=== PATIENT | female | born 1935 | race Caucasian/White ===

== ENCOUNTER 2016-06-11 12:51 | Inpatient (IN) | payer OTHER ==
[2016-06-11] VITALS (9 sets, daily range): BP systolic 89–111; BP diastolic 51–84; PULSE 71–93; TEMP 36.6–36.7; O2SAT 96–99; Ht 152.4 cm; Wt 44.0 kg
[~2016-06-11] VITALS: Ht 152.4 cm; Wt 44.0 kg
[~2016-06-11 12:51] MED LIST: ACET-1256 PO; ADVIN25050 INH; ALBUAER2 INH; CALCTAB7 PO; DICY10CA12 PO; DOCU100C PO; ESCI1TAB9 PO; ESTR1CRE; LEVO50TA PO; MULT-614 PO; PRD10 PO; RANI300T PO; ZOLE5INJ IV
[2016-06-11] MEDS ORDERED: ASPIRIN 81 MG CHEW PO STA (13:14)
[2016-06-11] MEDS ORDERED: ALBUT/IPRATROP 3MG/0.5MG NEB 3 ML VIAL INH STA (13:29)
[2016-06-11] MEDS ORDERED: SODIUM CHLORIDE 0.9% 500ML 500 ML IV STA (13:31)
[2016-06-11 13:33] LABS: BASO % 0.1 %; BASO ABS # 0.02 K/uL (0-0.2); COMPLETE YES; HEMATOCRIT 44.3 % (37-47); IG% 0.4 %; LYMPH % 11.3 %; MEAN CELL VOLUME 93.9 fL (80-100); MEAN CORPUSCULAR HEMOGLOBIN 31.8 pg (25-34); MEAN CORPUSCULAR HGB CONC 33.9 g/dl (32-36); MONO % 4.7 %; NEUT % 83.5 %; PLATELET COUNT 319 K/uL (130-400); RED BLOOD COUNT 4.72 M/uL (4.2-5.4); WHITE BLOOD COUNT 14.15 K/uL (4.8-10.8)
[2016-06-11 13:44] LABS: PARTIAL THROMBOPLASTIN RATIO 1.2; PROTHROMBIN TIME (PATIENT) 10.8 SECONDS (9.0-12.0)
--- NOTE | 2016-06-11 14:05 | DIAGNOSTIC IMAGING REPORT ---
CHEST ONE VIEW PORTABLE CLINICAL HISTORY: Fever, sepsis, shortness of breath. COMPARISON STUDY: No previous studies for comparison. FINDINGS: The chest is emphysematous configuration. There is elevation the lateral aspect of the left hemidiaphragm with blunting of the left lateral costophrenic angle. This is likely chronic. There is no acute parenchymal consolidation. There are no pleural effusions. There is no failure. There are scattered interstitial densities likely chronic.[ IMPRESSION: Emphysema with chronic interstitial changes. Chronic blunting and elevation of the lateral margin of the left hemidiaphragm. No evidence of acute parenchymal consolidation Electronically signed by: Cuco Barber M.D. 06/11/2016 2:03 PM
[2016-06-11] MEDS ORDERED: LEVO75TA PO (14:34)
[2016-06-11 15:02] LABS: ALKALINE PHOSPHATASE 109 U/L (45-117); ALT/SGPT 44 U/L (12-78); AST/SGOT 42 U/L (15-37); BLOOD UREA NITROGEN 23 mg/dl (7-18); BUN/CREATININE RATIO 16.6 (10-20); CARBON DIOXIDE 25 mmol/L (21-32); CHLORIDE 101 mmol/L (98-107); CKMB/CK RATIO 6.2 (0-3.0); GLUCOSE 193 mg/dl (70-99); POTASSIUM 4.5 mmol/L (3.5-5.1); SODIUM 139 mmol/L (136-145)
--- NOTE | 2016-06-11 15:15 | EMERGENCY ROOM VISIT NOTE ---
History Report prepared by Barby: Rosaura Thompson Under the Supervision of: Dr. Ferny Espino D.O. First contact with patient: 13:14 Chief Complaint: SHORTNESS OF BREATH Stated Complaint: SOB Nursing Triage Summary: pt arrived via ALS; increased SOB since last night; given 2 duoneb Tx and 125 solumedrol enroute; pt states "I'm breathing a little better" since treatments. History of Present Illness The patient is an 80 year old female who presents to the Emergency Room with complaints of persistent shortness of breath that began last evening, and has worsened. The patient states that she has been battling a progressively worsening cough and cold since the . She states that she slightly noticed the shortness of breath at first, but states that it has worsened yesterday. The patient states that she has been diaphoretic, has had a runny nose, and has had a scratchy throat at the beginning. She states that yesterday when her symptoms worsened, she became lightheaded. The patient denies being a smoker but notes a history of COPD. She denies wearing oxygen at home and denies taking any aspirin daily. The patient states that she was just taken off Prednisone recently due to her ulcerative colitis. Per EMS the patient was given 2 DuoNeb treatments and 125 Solu-Medrol prior to arrival, and the patient notes that her breathing has gotten a little bit better since. The patient denies any chest pain. Source of History: patient, EMS Onset: last evening Position: other (global) Quality: other (shortness of breath) Timing: worsening, other (persistent) Modifying Factors (Relieving): other (duoneb, solu-medrol) Associated Symptoms: + cough, + diaphoresis, No chest pain Note: Associated Symptoms: lightheaded, scratchy throat, runny nose Review of Systems See HPI for pertinent positives & negatives. A total of 10 systems reviewed and were otherwise negative. Past Medical & Surgical Medical Problems: (1) Colitis (2) Diverticulosis Colon (W/O Ment Of Hemorrhage) (3) Emphysema (4) Hypothyroidism Nos (5) S/P hernia repair Family History Cancer Diabetes mellitus Gallbladder disease Kidney stones Lung disease Social History Smoking Status: Former Smoker Alcohol Use: occasionally Marital Status: single Housing Status: lives alone Occupation Status: retired Current/Historical Medications Scheduled Calcium Carbonate-Vitamin D W/ (Caltrate 600 Plus), 1 TAB PO BID Escitalopram Oxalate (Lexapro), 20 MG PO DAILY Fluticasone Prop/Salmeterol (Advair Diskus 250-50 Mcg/Dose), 1 PUFF INH BID Levothyroxine Sodium (Synthroid), 75 MCG PO DAILY Multiple Vitamins W/ Minerals (Centrum Silver Ultra [place]), 1 TAB PO DAILY Ranitidine Hcl (Zantac), 300 MG PO HS Scheduled PRN Acetaminophen (Tylenol), 1,000 MG PO Q6H PRN for Pain Albuterol (Ventolin), 2 PUFFS INH Q4H PRN for Wheezing Dicyclomine Hcl (Dicyclomine Hcl), 10 MG PO TID PRN for ABDOMINAL PAIN Docusate Sodium (Stool Softener), 100 MG PO HS PRN for Constipation Allergies Coded Allergies: Alendronate (Verified Allergy, Mild, muscle pain, 06/11/16) Physical Exam Vital Signs Date Time Temp Pulse Resp B/P Pulse Ox O2 Delivery O2 Flow Rate FiO2 06/11/16 14:51 97 29 98 06/11/16 14:21 95 26 98 06/11/16 13:58 105/65 06/11/16 13:51 96 18 100 06/11/16 13:21 103 28 96 06/11/16 13:12 98 Nasal Cannula 2.0 06/11/16 13:05 103 06/11/16 13:04 36.8 102 27 107/54 95 Room Air 06/11/16 13:04 95 Room Air 06/11/16 13:04 95 Room Air 06/11/16 13:00 107/54 Physical Exam CONSTITUTIONAL/VITAL SIGNS: Reviewed / noted above. GENERAL: Non-toxic in appearance. INTEGUMENTARY: Warm, dry, and Comfort. HEAD: Normocephalic. EYES: without scleral icterus or trauma. ENT/OROPHARYNX: clear and moist. LYMPHADENOPATHY/NECK: Is supple without lymphadenopathy or meningismus. RESPIRATORY: Expiratory wheezing in the left greater than right. Mild increased work of breathing, occasional dry cough. CARDIOVASCULAR: Regular rate and rhythm. GI/ABDOMEN: Soft and nontender. No organomegaly or pulsatile mass. No rebound or guarding. Normal bowel sounds. EXTREMITIES: Warm and well perfused. BACK: No CVA tenderness. NEUROLOGICAL: Intact without focal deficits. PSYCHIATRIC: normal affect. MUSCULOSKELETAL: Normally developed with good muscle tone. Medical Decision & Procedures ER Provider Diagnostic Interpretation: X ray results and stated below per my interpretation and radiology interpretation. CHEST ONE VIEW PORTABLE CLINICAL HISTORY: Fever, sepsis, shortness of breath. COMPARISON STUDY: No previous studies for comparison. FINDINGS: The chest is emphysematous configuration. There is elevation the lateral aspect of the left hemidiaphragm with blunting of the left lateral costophrenic angle. This is likely chronic. There is no acute parenchymal consolidation. There are no pleural effusions. There is no failure. There are scattered interstitial densities likely chronic.[ IMPRESSION: Emphysema with chronic interstitial changes. Chronic blunting and elevation of the lateral margin of the left hemidiaphragm. No evidence of acute parenchymal consolidation Electronically signed by: Cuco Barber M.D. 06/11/2016 2:03 PM Laboratory Results 06/11/16 12:30 Red Blood Count 4.72, Mean Corpuscular Volume 93.9, Mean Corpuscular Hemoglobin 31.8, Mean Corpuscular Hemoglobin Concent 33.9, Mean Platelet Volume 11.0, Neutrophils (%) (Auto) 83.5, Lymphocytes (%) (Auto) 11.3, Monocytes (%) (Auto) 4.7, Eosinophils (%) (Auto) 0.0, Basophils (%) (Auto) 0.1, Neutrophils # (Auto) 11.81, Lymphocytes # (Auto) 1.60, Monocytes # (Auto) 0.66, Eosinophils # (Auto) 0.00, Basophils # (Auto) 0.02 06/11/16 12:30 Test 06/11/16 12:30 06/11/16 14:10 White Blood Count 14.15 K/uL (4.8-10.8) Red Blood Count 4.72 M/uL (4.2-5.4) Hemoglobin 15.0 g/dL (12.0-16.0) Hematocrit 44.3 % (37-47) Mean Corpuscular Volume 93.9 fL (80-100) Mean Corpuscular Hemoglobin 31.8 pg (25-34) Mean Corpuscular Hemoglobin Concent 33.9 g/dl (32-36) Platelet Count 319 K/uL (130-400) Mean Platelet Volume 11.0 fL (7.4-10.4) Neutrophils (%) (Auto) 83.5 % Lymphocytes (%) (Auto) 11.3 % Monocytes (%) (Auto) 4.7 % Eosinophils (%) (Auto) 0.0 % Basophils (%) (Auto) 0.1 % Neutrophils # (Auto) 11.81 K/uL (1.4-6.5) Lymphocytes # (Auto) 1.60 K/uL (1.2-3.4) Monocytes # (Auto) 0.66 K/uL (0.11-0.59) Eosinophils # (Auto) 0.00 K/uL (0-0.5) Basophils # (Auto) 0.02 K/uL (0-0.2) RDW Standard Deviation 45.2 fL (36.4-46.3) RDW Coefficient of Variation 13.1 % (11.5-14.5) Immature Granulocyte % (Auto) 0.4 % Immature Granulocyte # (Auto) 0.06 K/uL (0.00-0.02) Prothrombin Time 10.8 SECONDS (9.0-12.0) Prothromb Time International Ratio 1.0 (0.9-1.1) Activated Partial Thromboplast Time 30.7 SECONDS (21.0-31.0) Partial Thromboplastin Ratio 1.2 Anion Gap 13.0 mmol/L (3-11) Est Creatinine Clear Calc Drug Dose 23.0 ml/min Estimated GFR () 41.0 Estimated GFR (Non- 35.4 BUN/Creatinine Ratio 16.6 (10-20) Calcium Level 9.0 mg/dl (8.5-10.1) Total Bilirubin 0.3 mg/dl (0.2-1) Direct Bilirubin < 0.1 mg/dl (0-0.2) Aspartate Amino Transf (AST/SGOT) 42 U/L (15-37) Alanine Aminotransferase (ALT/SGPT) 44 U/L (12-78) Alkaline Phosphatase 109 U/L (45-117) Total Creatine Kinase 253 U/L (26-192) Creatine Kinase MB 15.7 ng/ml (0.5-3.6) Creatine Kinase MB Ratio 6.2 (0-3.0) Troponin I 3.230 ng/ml (0-0.045) Total Protein 7.7 gm/dl (6.4-8.2) Albumin 3.0 gm/dl (3.4-5.0) Lipase 105 U/L (73-393) Thyroid Stimulating Hormone (TSH) 1.970 uIu/ml (0.300-4.500) Laboratory results as stated above per my review. Medications Administered Medications (Trade) Dose Ordered Sig/Anthony Route Start Time Stop Time Status Last Admin Dose Admin Aspirin (Aspirin Chew) 324 mg NOW STAT PO 06/11/16 13:14 06/11/16 13:16 DC 06/11/16 13:26 324 MG Albuterol/ Ipratropium 3 ml 3 ml NOW STAT INH 06/11/16 13:29 06/11/16 13:30 DC 06/11/16 13:29 3 ML Sodium Chloride (Nss 500ml) 500 ml @ 999 mls/hr Q31M STAT IV 06/11/16 13:31 06/11/16 14:01 DC 06/11/16 13:31 999 MLS/HR ECG Indication: SOB/dyspnea Rate (beats per minute): 103 Rhythm: sinus tachycardia Findings: T-wave inversion (inferiorlateral), no ectopy Comparison ECG Date: 09/23/14 Change: EKG Change: When compared to EKG done on 09/23/14, ST inversions are new, concerning for ischemic change. ED Course 1314: Ordered Aspirin 324 mg PO. 1325: Previous medical records were reviewed. The patient was evaluated in room B6. A complete history and physical examination was performed. 1329: Ordered DuoNeb 3 ml INH. 1331: Ordered Sodium Chloride 500 ml @ 999 mls/hr IV. 1507: I discussed the patients case with RAKESH Whitlock. She is going to evaluate the patient for further treatment. 1520: I discussed the patients case with Shreyas Marquez Cardiology. He is going to follow along with the patient. 1523: I reevaluated the patient and she is resting comfortably. I discussed the exam findings and I discussed the treatment plan. She verbalized complete understanding and agreement. She is going to be evaluated for further treatment. Medical Decision the differential was considered includes acute myocardial infarction, acute coronary syndrome, myocarditis, pericarditis, pericardial effusions /tamponad, esophageal perforation, pulmonary embolism, pneumonia, pneumothorax, cardiomyopathy, congestive heart, anemia , COPD/asthma exacerbation. This is an 80-year-old female who presents to the ED with a chief complaint of shortness of breath. The patient states that she has had some cold symptoms for about a week. Her current symptoms consist of a cough and runny nose as well as some shortness of breath. Her symptoms seem to be worsening. She came in for evaluation. She was a little tachypneic on exam. Vital signs otherwise stable. She is afebrile. She does not use oxygen at home. Oxygen saturations were good. Exam revealed some scattered wheezing on the left compared to right. Diminished breath sounds throughout. She is in mild respiratory distress. EKG shows sinus tach with a rate of [address] changes in the inferolateral leads that are new compared to previous EKG. CBC is unremarkable. Chest x-ray did not show any acute disease. Chemistry panel reveals a slightly elevated BUN and creatinine. The troponin is elevated at 3.23. I spoke with the hospitalist about the patient. I also spoke with the knitter machine, Dr. Durham. He is seeing the patient in the ED. The patient will be seen for further inpatient care. IV heparin was started. The patient was also given by mouth aspirin. Consults Time Called: 1504 Consulting Physician: RAKESH Whitlock Returned Call: 1500 I discussed the patients case with RAKESH Whitlock. She is going to evaluate the patient for further treatment. Additional Consults: Time Called: 1511 Consulted Physician: Shreyas Marquez Cardiology Returned Call: 1520 Additional Comments: I discussed the patients case with Shreyas Marquez Cardiology. He is going to follow along with the patient. Impression Primary Impression: Flu-like symptoms Additional Impressions: Dyspnea, Non-ST elevation DC (NSTEMI) Scribe Attestation The scribe's documentation has been prepared under my direction and personally reviewed by me in its entirety. I confirm that the note above accurately reflects all work, treatment, procedures, and medical decision making performed by me. Departure Information Dispostion Being Evaluated By Hospitalist Tracie Beckham M.D. (PCP)
[2016-06-11] MEDS ORDERED: HEPARIN SOD 5000 UNIT/0.5 ML CARP ONE (15:32)
[2016-06-11] MEDS ORDERED: HEPARIN 25000 UNIT/500 ML D5W ONE (15:32)
[2016-06-11] MEDS ORDERED: METOPROLOL TARTRATE 1 MG/ML VIAL ONE (15:40)
[2016-06-11] MEDS ORDERED: HEPARIN SOD (PORCINE) 1000 UNIT/ML 10 ML VIAL ONE (15:59)
[2016-06-11] MEDS ORDERED: FENTANYL CITRATE INJ 50 MCG/1 ML 2 ML VIAL ONE (15:59)
[2016-06-11] MEDS ORDERED: NiCARDipine HCL INJ 2.5 MG/ML 10 ML AMP ONE (15:59)
[2016-06-11] MEDS ORDERED: MIDAZOLAM HCL 1 MG/ML 2ML VIAL ONE (15:59)
[2016-06-11] MEDS ORDERED: NITROGLYCERIN/D5W 100MCG/ML 20ML SYR ONE (16:00)
[2016-06-11] MEDS ORDERED: ACETAMINOPHEN 325 MG TAB PO PRN ×2 (16:30→17:00)
[2016-06-11] MEDS ORDERED: ONDANSETRON INJ 2 MG/ML 2 ML VIAL IV PRN ×2 (16:30→17:00)
[2016-06-11] MEDS ORDERED: DOCUSATE SODIUM 100 MG CAP PO PRN (16:30)
[2016-06-11] MEDS ORDERED: NITROGLYCERIN 0.4 MG SL PER TAB CHARGE SL PRN (16:30)
--- NOTE | 2016-06-11 16:47 | CARDIOLOGY CONSULTATION ---
DATE OF CONSULTATION: 06/11/2016 CONSULTATION REQUESTED BY: Dr. Espino. REASON FOR CONSULTATION: EKG changes with elevated troponin. HISTORY OF PRESENT ILLNESS: Mrs. Johnson is a very pleasant 80-year-old woman who presented to [facility] Emergency Department on 06/11/2016 with a complaint of shortness of breath. The patient states that she came down with a cold, maybe even slight bronchitis approximately 1 week ago. She has been battling that for the last week stating that she has just felt generalized fatigue, malaise, some occasional myalgias and a productive cough along with some occasional shortness of breath. Then on the evening of 06/10/2016, the patient became acutely short of breath. She states that no matter what she did she just could not catch her breath. She went to bed and tried to sleep it off; however, symptoms persist throughout the night and continued in the morning upon awakening and she called EMS. During this time, she denied experiencing any pain whatsoever and she denied any other associated symptoms, specifically denied any associated chest pain, nausea, palpitations, diaphoresis, lightheadedness, dizziness, or syncope. She states she just could not catch her breath. Upon arrival to the Emergency Room, EKG was performed which showed significant inferior and lateral ST segment depressions compared to previous study. Initial troponin was 3 and cardiology was consulted. IV heparin was started. As I saw the patient, she was given 5 mg of IV Lopressor and a 2D echocardiogram was obtained at the bedside. The echocardiogram showed severely reduced LV systolic function with akinesis of the anterior septal and apical ceja with otherwise severe global hypokinesis. At that time a decision was made to take her urgently to the cardiac catheterization lab. PAST SURGICAL HISTORY: 1. Hernia repair. 2. Cataract surgery. 3. Upper endoscopy. 4. Colonoscopy. 5. D\T\C. MEDICAL ILLNESSES: 1. COPD. 2. Remote history of tobacco abuse. 3. Ulcerative colitis. 4. Stage III chronic kidney disease. 5. Hypothyroidism. 6. GERD. 7. Dyslipidemia. FAMILY HISTORY: Noncontributory. SOCIAL HISTORY: The patient was a long-term smoker, quit in year 1999. Denies any alcohol or recreational drug use. She is . She lives at home by herself. She has children that live in [place]. 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 REVIEW OF SYSTEMS: As per HPI. All other review of systems reviewed and negative at this time. ALLERGIES: BISPHOSPHONATES. MEDICATIONS AN OUTPATIENT: Levoxyl daily, Lexapro daily, Detrol-LA daily, Advair b.i.d., ranitidine daily, Bentyl as needed. PHYSICAL EXAMINATION: VITAL SIGNS: Temperature 36.8, pulse 90, respiratory rate 12, blood pressure 110/62. GENERAL: Awake, alert, oriented x3. Mild conversational dyspnea with pursed lip breathing. HEENT: Normocephalic, atraumatic. Pupils are equal, round, and reactive to light and accommodation. Extraocular muscles intact. Anicteric sclerae. Moist mucous membranes. NECK: No JVD, no bruit. CARDIOVASCULAR: Regular but fast. Positive S4. Normal S1 and S2. No S3. No murmurs or rubs. PULMONARY: Poor air movement diffusely, but clear. No rales, rhonchi, or wheezing. ABDOMEN: Bowel sounds x4, soft. No rebound, guarding, tenderness. No organomegaly. EXTREMITIES: No clubbing, cyanosis or edema. +2 pedal pulses bilaterally. SKIN: Warm and dry. TEST RESULTS: A 12-lead EKG performed in the Emergency Department independently reviewed at this time shows sinus tachycardia with significant T-wave inversions in the inferior and lateral leads. LABORATORY STUDIES OF SIGNIFICANCE: White count 14.1, platelet count of 319, hemoglobin 15. Sodium 139, potassium 4.5, BUN 23, creatinine 1.4. Troponin of 3.2. CPK of 253. IMPRESSION: 1. Acute coronary syndrome. 2. Chronic obstructive pulmonary disease. RECOMMENDATIONS: It was my pleasure to see Mrs. Johnson in consultation today. The pathophysiology of acute coronary syndrome was discussed with the patient at great lengths. It was explained at this time that I would recommend we proceed directly to cardiac catheterization for direct visualization of her coronary anatomy and possible intervention. The procedure along with the risks and benefits along with the alternatives were discussed with the patient. She states that she understands and wishes to proceed to cardiac catheterization. She has been taken emergently to cardiac catheterization lab by Dr. Hinds and further recommendations to follow.
--- NOTE | 2016-06-11 16:54 | Procedure Note ---
Pre-Mod Sedation Assessment General Date of Moderate Sedation: Jun 11, 2016. Vital Signs: Vital Signs Past 12 Hours Date Time Temp Pulse Resp B/P Pulse Ox O2 Delivery O2 Flow Rate FiO2 06/11/16 16:40 83 16 86/54 99 Nasal Cannula 4 06/11/16 16:03 36.8 90 12 110/62 96 06/11/16 15:56 90 12 96 06/11/16 15:51 86 99 06/11/16 15:46 98 23 99 06/11/16 15:45 110/62 06/11/16 15:41 99 21 99 06/11/16 15:40 100 110/62 06/11/16 15:36 98 28 99 06/11/16 15:32 101/67 06/11/16 15:31 109 94 06/11/16 15:30 104 16 101/67 97 Nasal Cannula 2.0 06/11/16 15:21 96 25 98 06/11/16 15:16 95 29 98 06/11/16 15:11 94 27 98 06/11/16 15:06 94 30 98 06/11/16 15:01 96 22 100 06/11/16 14:58 99/57 06/11/16 14:56 94 25 98 06/11/16 14:51 97 29 98 06/11/16 14:21 95 26 98 06/11/16 13:58 105/65 06/11/16 13:51 96 18 100 06/11/16 13:21 103 28 96 06/11/16 13:12 98 Nasal Cannula 2.0 06/11/16 13:05 103 06/11/16 13:04 36.8 102 27 107/54 95 Room Air 06/11/16 13:04 95 Room Air 06/11/16 13:04 95 Room Air 06/11/16 13:00 107/54 Review Cardiovascular: regular rate, rhythm, no edema, no gallop, no JVD, normal peripheral pulses, + systolic murmur Abdomen: normal bowel sounds, non tender, soft Lungs: lungs clear Pre-Sedation Airway Assessment Oral Cavity: WNL Able to Visualize Vocal Cords: No Short Thick Neck: No Smoking Status: Former Smoker Mallampati Classification: Class III Procedure Planning Contraindications-for Mod Sed: None Yes Notes The planned sedation has been discussed with the patient and consent obtained. I have identified the patient, determined the appropriateness of sedation and have assessed the patient immediately prior to the procedure. All medicine(s) and interventions are by my order.
--- NOTE | 2016-06-11 16:55 | Procedure Note ---
Post-Mod Sedation Assessment General Date of Moderate Sedation Jun 11, 2016. Vital Signs: Vital Signs Past 12 Hours Date Time Temp Pulse Resp B/P Pulse Ox O2 Delivery O2 Flow Rate FiO2 06/11/16 16:40 83 16 86/54 99 Nasal Cannula 4 06/11/16 16:03 36.8 90 12 110/62 96 06/11/16 15:56 90 12 96 06/11/16 15:51 86 99 06/11/16 15:46 98 23 99 06/11/16 15:45 110/62 06/11/16 15:41 99 21 99 06/11/16 15:40 100 110/62 06/11/16 15:36 98 28 99 06/11/16 15:32 101/67 06/11/16 15:31 109 94 06/11/16 15:30 104 16 101/67 97 Nasal Cannula 2.0 06/11/16 15:21 96 25 98 06/11/16 15:16 95 29 98 06/11/16 15:11 94 27 98 06/11/16 15:06 94 30 98 06/11/16 15:01 96 22 100 06/11/16 14:58 99/57 06/11/16 14:56 94 25 98 06/11/16 14:51 97 29 98 06/11/16 14:21 95 26 98 06/11/16 13:58 105/65 06/11/16 13:51 96 18 100 06/11/16 13:21 103 28 96 06/11/16 13:12 98 Nasal Cannula 2.0 06/11/16 13:05 103 06/11/16 13:04 36.8 102 27 107/54 95 Room Air 06/11/16 13:04 95 Room Air 06/11/16 13:04 95 Room Air 06/11/16 13:00 107/54 Review - Discharge Criteria Vital Signs Stable: Yes Alert/Oriented/Conversant: Yes Returned to Baseline Mental St: Yes Nausea Absent/Minimal: Yes Pain/Discomfort/Absent/Minimal: Yes Normal/Baseline Respirations: Yes Active Bleeding?: No Pt Received D/C Instructions: N/A Prescriptions Given: None Specific Proced. D/C Criteria Distal Pulses Present (Cardiac: Yes Groin site assessed-Card Cath: N/A Voided Prior To Discharge: N/A Discharged Patients Adult Escort/Transportation: N/A
[2016-06-11] MEDS ORDERED: SODIUM CHLORIDE 0.9% 1000ML 250 ML IV PRN (16:57)
[2016-06-11] MEDS ORDERED: ATROPINE SULFATE 0.1 MG/ML 5ML SYR IV PRN (17:00)
[2016-06-11 17:14] LABS: INFLUENZA A PCR Neg for Influ A (NEG); INFLUENZA B PCR Neg for Influ B (NEG)
[2016-06-11] MEDS ORDERED: LORAZEPAM 0.5 MG TAB PO PRN (17:15)
[2016-06-11] MEDS ORDERED: PROMETHAZINE HCL INJ 12.5 MG in SODIUM CHLORIDE 0.9% 50ML 50 ML IV PRN (17:30)
--- NOTE | 2016-06-11 17:34 | Cardiac Catheterization ---
Procedure Note Procedure Date Jun 11, 2016. Pre-Procedure Diagnosis Non STEMI, Acute Coronary Syndrome AUC Score 8 Post-Procedure Diagnosis Mild CAD, Decreased LV Systolic Function, Elevated Intracardiac Pressures Procedure(s) Performed Coronary Angiography, Left Heart Cath, LV Angiography, Aortography Mud Analysis Operator Dr. Hinds Crown Ironer(s) ZHAO Yates Estimated Blood Loss 15 ml Medication(s) Fentanyl, Heparin, Nicardipine (intra arterial), Versed, Lidocaine 1% Summary of Findings Clinical indications: Non STEMI, anterior hypokinesis on echocardiography, inferior and anterior T inversions on ECG, troponin I 3.2. Patient referred by Dr. Geovany Durham for urgent cardiac catheterization. Catheterization site: 6 FR slender glide sheath right radial artery. Catheters: 5 Fr brachial 3.5 and pigtail catheters. Hemostasis: Terumo TR band. Complications: none. Findings: Mild coronary calcifications. Right dominant circulation. Normal large caliber LM giving rise to medium caliber LAD and L Cx. Very proximal LAD gave rise to a very small caliber first diagonal. Proximal LAD after a prominent septal had a 20% stenosis. Mid LAD gave rise to a long small - medium caliber second diagonal. Distal LAD wrapped around apex and supplied inferoapical left ventricle. Proximal L Cx with 10% stenosis. Mid L Cx gave rise to a long small - medium caliber marginal. Mid Lc then gave rise to very small caliber OM2 and OM3. Distal L Cx gave rise to a very small caliber OM4. RCA a medium - large caliber vessel. Proximal 10% stenosis, sequential mid 20% stenoses. Distal RCA gave rise to small caliber PDA and PL. Aortography performed to exclude an aortic dissection because of hang up of contrast dye in aortic cusp on coronary angiography. No dissection noted on aortic angiography. No aortic regurgitation. LV angiography in 30 degree CRAIG projection with diaphragmatic and anterolateral hypokinesis. Anterobasal,apical,and posterobasal segments contracted normally. Calculated LVEF 42%. No MR. Plan: No indication for revascularization. Possible stress induced cardiomyopathy ( Takotsubo's syndrome). Continued cardiology follow up and cardiac management by Dr. Durham. Hemodynamics Rest Ao: 85/47/63 mm Hg Final Ao: 83/43/61 mm Hg LV: 74/24 mm Hg Recommendations Medical therapy and/or Counseling Specimens None Radiation Exposure (mGy) 396 Contrast (mls) 105 Fluids (cc crystalloids) 250 Drains none Anesthesia IV versed,fentanyl. Lidocaine 1% local Procedural Complication(s) None Disposition PCU ACC Data Cardiac Status Clinical evaluation leading to the procedure CAD Presntation: Non STEMI Anginal Classification: CCS IV Heart Failure: No Cardiogenic Shock w/in 24Hrs: No Cardiac Arrest w/in 24Hrs: No Imaging studies past 6 months: Yes (Echo in ED today with anterior hypokinesis) Stress studies past 6 months: No Standard Exercise Stress Test: No Stress Echocardiogram: No Stress Testing w/SPECT MPI: No Cardiac CTA: No Coronary Anatomy Dominant: Right Left Main (% Stenosis): Normal LAD (% Stenosis): Proximal (20), Mid (Normal), Distal (Normal) D1 (% Stenosis): Normal D2 (% Stenosis): Normal Circumflex (% Stenosis): Proximal (10), Mid (Normal), Distal OM1 (% Stenosis): Normal OM2 (% Stenosis): Normal OM3 (% Stenosis): Normal RCA (% Stenosis): Proximal (0-10), Mid (sequential 20,20), Distal (Normal) R PDA (% Stenosis): Normal R PL1 (% Stenosis): Normal Left Ventricular Angiography EF (%): 42 Wall Motion: Inferior (Hypokinetic), Apical (Normal), Anterior (Hypokinetic) Mitral Regurgitation: None Aortography Aortic Regurgitation: None Diagnostic Status: Urgent Closure Device Percutaneous Entry Location: Radial Closure Device: Radial Band Recommendations: Medical therapy and/or Counseling
[2016-06-11] MEDS: SODIUM CHLORIDE 0.9% 1000ML 1,000 ML IV SCH (17:58)
[2016-06-11] MEDS: METOPROLOL TARTRATE 25 MG TAB PO SCH ×2 (18:00→23:54)
--- NOTE | 2016-06-11 19:05 | History and Physical ---
History & Physical Date & Time of Service: Jun 11, 2016 at 18:44 Chief Complaint: Shortness of Breath Primary Care Physician: Tracie Roger M.D. History of Present Illness Source: patient, hospital records 80 year old female who presents to the ER with shortness of breath. Patient reports she has had cold like symptoms for the past couple of weeks. Last night she suddenly developed shortness of breath. She reports associated diaphoresis. No chest pain, pressure, or palpitations. She denies lightheadedness, dizziness , diaphoresis, or syncope. No abdominal pain, nausea, or vomiting. No fever or chills. She denies any urinary symptoms. In the ER, patient was found to have trop 3.2 and EKG shoed new T-wave inversions laterally and inferiorly. Patient was evaluated by Dr. Durham from cardiology and was taken to the laborer steel handling emergently. Past Medical/Surgical History Medical Problems: (1) BPPV (benign paroxysmal positional vertigo) Status: Chronic (2) CKD (chronic kidney disease), stage III Status: Chronic (3) COPD (chronic obstructive pulmonary disease) Status: Chronic (4) Depression with anxiety Status: Chronic (5) Dyslipidemia Status: Chronic (6) GERD (gastroesophageal reflux disease) Status: Chronic (7) Hypothyroidism Status: Chronic (8) PUSHPA (iron deficiency anemia) Status: Chronic (9) Inguinal hernia Status: Chronic (10) Osteoarthritis Status: Chronic (11) Ulcerative colitis Status: Chronic Surgical Problems: (1) H/O dilation and curettage Status: Chronic (2) History of cataract surgery Status: Chronic Family History Cancer Diabetes mellitus Gallbladder disease Kidney stones Lung disease Social History Smoking Status: Former Smoker Alcohol Use: none Immunizations History of Influenza Vaccine: Yes Influenza Vaccine Date: Apr 24, 2016 History of Tetanus Vaccine?: Yes Tetanus Immunization Date: Jun 08, 2000 History of Pneumococcal: Yes Pneumococcal Date: Jan 22, 2016 Allergies Coded Allergies: Alendronate (Verified Allergy, Mild, muscle pain, 06/11/16) Home Medications Scheduled Calcium Carbonate-Vitamin D W/ (Caltrate 600 Plus), 1 TAB PO BID Escitalopram Oxalate (Lexapro), 20 MG PO DAILY Fluticasone Prop/Salmeterol (Advair Diskus 250-50 Mcg/Dose), 1 PUFF INH BID Levothyroxine Sodium (Synthroid), 75 MCG PO DAILY Multiple Vitamins W/ Minerals (Centrum Silver Ultra [place]), 1 TAB PO DAILY Ranitidine Hcl (Zantac), 300 MG PO HS Scheduled PRN Acetaminophen (Tylenol), 1,000 MG PO Q6H PRN for Pain Albuterol (Ventolin), 2 PUFFS INH Q4H PRN for Wheezing Dicyclomine Hcl (Dicyclomine Hcl), 10 MG PO TID PRN for ABDOMINAL PAIN Docusate Sodium (Stool Softener), 100 MG PO HS PRN for Constipation Review of Systems 10 point review of systems was completed with the pertinent positives and negatives noted per the HPI Physical Exam Vital Signs Date Time Temp Pulse Resp B/P Pulse Ox O2 Delivery O2 Flow Rate FiO2 06/11/16 18:15 91 100/66 98 Nasal Cannula 4.0 06/11/16 18:00 87 18 94/60 99 Nasal Cannula 4.0 06/11/16 17:30 83 90/63 99 Nasal Cannula 06/11/16 17:30 87 101/63 99 Nasal Cannula 4.0 06/11/16 17:15 36.6 71 19 95/60 99 Nasal Cannula 4.0 06/11/16 17:00 36.6 82 20 95/60 99 Nasal Cannula 4.0 06/11/16 17:00 36.6 82 20 95/60 97 Nasal Cannula 4.0 06/11/16 16:53 82 16 94/50 96 Nasal Cannula 2 06/11/16 16:40 83 16 86/54 99 Nasal Cannula 4 06/11/16 16:03 36.8 90 12 110/62 96 06/11/16 15:56 90 12 96 06/11/16 15:51 86 99 06/11/16 15:46 98 23 99 06/11/16 15:45 110/62 06/11/16 15:41 99 21 99 06/11/16 15:40 100 110/62 06/11/16 15:36 98 28 99 06/11/16 15:32 101/67 06/11/16 15:31 109 94 06/11/16 15:30 104 16 101/67 97 Nasal Cannula 2.0 06/11/16 15:21 96 25 98 06/11/16 15:16 95 29 98 06/11/16 15:11 94 27 98 06/11/16 15:06 94 30 98 06/11/16 15:01 96 22 100 06/11/16 14:58 99/57 06/11/16 14:56 94 25 98 06/11/16 14:51 97 29 98 06/11/16 14:21 95 26 98 06/11/16 13:58 105/65 06/11/16 13:51 96 18 100 06/11/16 13:21 103 28 96 06/11/16 13:12 98 Nasal Cannula 2.0 06/11/16 13:05 103 06/11/16 13:04 36.8 102 27 107/54 95 Room Air 06/11/16 13:04 95 Room Air 06/11/16 13:04 95 Room Air 06/11/16 13:00 107/54 General Appearance: no apparent distress Head: normocephalic Eyes: normal inspection ENT: hearing grossly normal Neck: supple, no JVD Respiratory/Chest: chest non-tender, lungs clear, no respiratory distress, + decreased breath sounds, + pertinent finding (Mild accessory muscle use) Cardiovascular: regular rate, rhythm, no edema, no JVD, no murmur, normal peripheral pulses, + tachycardia Abdomen/GI: normal bowel sounds, non tender, soft, no organomegaly Back: normal inspection, no CVA tenderness Extremities/Musculoskelatal: normal inspection, no calf tenderness, normal capillary refill, no pedal edema, normal range of motion, non-tender, pelvis stable Neurologic/Psych: 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 as tested, no motor/sensory deficits, alert, normal mood/affect, normal reflexes, oriented x 3 Skin: normal color, warm/dry Lymphatic: no adenopathy Diagnostics Laboratory Results Results Past 24 Hours Test 06/11/16 12:30 06/11/16 14:10 06/11/16 18:30 Range/Units White Blood Count 14.15 4.8-10.8 K/uL Red Blood Count 4.72 4.2-5.4 M/uL Hemoglobin 15.0 12.0-16.0 g/dL Hematocrit 44.3 37-47 % Mean Corpuscular Volume 93.9 80-100 fL Mean Corpuscular Hemoglobin 31.8 25-34 pg Mean Corpuscular Hemoglobin Concent 33.9 32-36 g/dl Platelet Count 319 130-400 K/uL Mean Platelet Volume 11.0 7.4-10.4 fL Neutrophils (%) (Auto) 83.5 % Lymphocytes (%) (Auto) 11.3 % Monocytes (%) (Auto) 4.7 % Eosinophils (%) (Auto) 0.0 % Basophils (%) (Auto) 0.1 % Neutrophils # (Auto) 11.81 1.4-6.5 K/uL Lymphocytes # (Auto) 1.60 1.2-3.4 K/uL Monocytes # (Auto) 0.66 0.11-0.59 K/uL Eosinophils # (Auto) 0.00 0-0.5 K/uL Basophils # (Auto) 0.02 0-0.2 K/uL RDW Standard Deviation 45.2 36.4-46.3 fL RDW Coefficient of Variation 13.1 11.5-14.5 % Immature Granulocyte % (Auto) 0.4 % Immature Granulocyte # (Auto) 0.06 0.00-0.02 K/uL Prothrombin Time 10.8 9.0-12.0 SECONDS Prothromb Time International Ratio 1.0 0.9-1.1 Activated Partial Thromboplast Time 30.7 21.0-31.0 SECONDS Partial Thromboplastin Ratio 1.2 Sodium Level 139 136-145 mmol/L Potassium Level 4.5 3.5-5.1 mmol/L Chloride Level 101 98-107 mmol/L Carbon Dioxide Level 25 21-32 mmol/L Anion Gap 13.0 3-11 mmol/L Blood Urea Nitrogen 23 7-18 mg/dl Creatinine 1.40 0.60-1.20 mg/dl Est Creatinine Clear Calc Drug Dose 23.0 ml/min Estimated GFR () 41.0 Estimated GFR (Non- 35.4 BUN/Creatinine Ratio 16.6 10-20 Random Glucose 193 70-99 mg/dl Calcium Level 9.0 8.5-10.1 mg/dl Total Bilirubin 0.3 0.2-1 mg/dl Direct Bilirubin < 0.1 0-0.2 mg/dl Aspartate Amino Transf (AST/SGOT) 42 15-37 U/L Alanine Aminotransferase (ALT/SGPT) 44 12-78 U/L Alkaline Phosphatase 109 45-117 U/L Total Creatine Kinase 253 26-192 U/L Creatine Kinase MB 15.7 0.5-3.6 ng/ml Creatine Kinase MB Ratio 6.2 0-3.0 Troponin I 3.230 0-0.045 ng/ml Total Protein 7.7 6.4-8.2 gm/dl Albumin 3.0 3.4-5.0 gm/dl Lipase 105 73-393 U/L Thyroid Stimulating Hormone (TSH) 1.970 0.300-4.500 uIu/ml Influenza Type A (RT-PCR) Neg for Influ A NEG Influenza Type B (RT-PCR) Neg for Influ B NEG Diagnostic Radiology CXR IMPRESSION: Emphysema with chronic interstitial changes. Chronic blunting and elevation of the lateral margin of the left hemidiaphragm. No evidence of acute parenchymal consolidation EKG EKG: Sinus tachycardia, ST-T wave changes in inferior and stacia-lateral leads Impression Assessment and Plan SHORTNESS OF BREATH, ELEVATED TROPONIN, EKG CHANGES - patient presenting with cold like symptoms for 2 weeks and development of acute shortness of breath since last night - in the ER found to have trop 3.2 and EKG with T-wave inversions inferiorly and laterally; patient was evaluated by Dr. Durham in the ED and echo was obtained that "showed severely reduced LV systolic function with akinesis of the anterior septal and apical ceja with otherwise severe global hypokinesis" ( per Dr. Durham's consultation); patient was taken emergently to the laborer steel handling and cardiac cath showed minimal CAD and it was felt that patient had Takotsubo' s syndrome - case was discussed with Dr. Durham post cath and patient will be initiated on beta tammi therapy - due to acute onset of shortness of breath, will rule out PE with D. Dimer COPD - no wheezing noted on exam - continue home inhalers HYPOTHYROIDISM - continue levothyroxine DEPRESSION, ANXIETY - continue escitalopram DVT PROPHYLAXIS - SQ Heparin DISPO - In my clinical judgment this beneficiary meets acute admission criteria, established by [facility], that includes being hospitalized through two midnights. Attending Note: Patient is an 80 yr old female with PMH of COPD, Ulcerative colitis, CKD III presents with history of flu like symptoms, SOB, cough with yellowish sputum production, diaphoresis since about 1 week duration which has has progressively worsening since last 2 days. Denies any history of chest pain, palpitations, wheezes, abd pain, change in bowel/bladder habits, fever, chills. In the ER, patient was found to have elevated trop 3.2 and EKG showed new T-wave inversions inferior and anterolateral leads. Per Cardiology recommendation, patient cardiac catheterization which showed non occlusive coronary artery disease. Physical Exam: agree with physical exam as above Acute on Chronic COPD exacerbation: Start her on Doxycycline (Give QTC prolongation) Continue home bronchodilators Start IV Solumderol 40mg QD Oxygen support, dUONEBS prn Get Blood and Sputum cultures Also get D-dimer: R/O PE SARAH on CKD III: Baseline Cr:1.1 Start IV fluids Monitor renal function Elevated Troponin/EKG changes: S/P Cath: non occlusive coronary artery disease Likely Takotsubo's syndrome Cardiology on board Started on beta blockers R/O PE, get d-dimer Bedside ECHO:severely reduced LV systolic function with akinesis of the anterior septal and apical ceja with otherwise severe global hypokinesis Ulcerative colitis: Stable Hypothyroidism: Continue Levothyroxine Anxiety/Depression: Stable. Continue home medications DVT Px: Heparin SQ Code Status; Full code Advanced Directives Existing Advance Directive: Yes Existing Living Will: Yes Existing Power of Auto Garage Attendant: Yes VTE Prophylaxis VTE Risk Assessment Done? Y/N: Yes Risk Level: Moderate
[2016-06-11] MEDS ORDERED: ALBUT/IPRATROP 3MG/0.5MG NEB 3 ML VIAL INH PRN (19:15)
[2016-06-11] MEDS ORDERED: METHYLPREDNISOLONE IV 40 MG in SYRINGE 0 ML IV ONE (20:00)
[2016-06-11] MEDS: RANITIDINE HCL 150 MG TAB PO SCH (21:00)
[2016-06-11] MEDS: DOXYCYCLINE IV 100 MG in DEXTROSE 5% 100ML 100 ML IV SCH (21:06)
[2016-06-11] MEDS: FLUTICASONE/SALMETEROL 250/50 (ADVAIR) 14 PUFF/1 INHALER INH SCH (21:07)
[2016-06-11] MEDS: CALCIUM 600MG + VIT D 400 IU TAB PO SCH (21:07)
[2016-06-11] MEDS: HEPARIN SOD 5000 UNIT/0.5 ML CARP SQ SCH (21:08)
[2016-06-12] VITALS (9 sets, daily range): BP systolic 92–141; BP diastolic 50–72; PULSE 72–105; TEMP 36.6–36.9; O2SAT 91–100
[2016-06-12] MEDS: SODIUM CHLORIDE 0.9% 1000ML 1,000 ML IV SCH (05:56)
[2016-06-12] MEDS: LEVOTHYROXINE 75 MCG TAB PO SCH (05:59)
[2016-06-12] MEDS: METOPROLOL TARTRATE 25 MG TAB PO SCH ×4 (05:59→23:31)
[2016-06-12 06:31] LABS: HEMATOCRIT 35.9 % (37-47); MEAN CELL VOLUME 94.2 fL (80-100); MEAN CORPUSCULAR HEMOGLOBIN 31.2 pg (25-34); MEAN CORPUSCULAR HGB CONC 33.1 g/dl (32-36); MEAN PLATELET VOLUME 10.7 fL (7.4-10.4); PLATELET COUNT 260 K/uL (130-400); RED BLOOD COUNT 3.81 M/uL (4.2-5.4); WHITE BLOOD COUNT 11.93 K/uL (4.8-10.8)
[2016-06-12 06:53] LABS: BUN/CREATININE RATIO 22.4 (10-20); CALCIUM 8.4 mg/dl (8.5-10.1); CREATININE 0.86 mg/dl (0.60-1.20); POTASSIUM 4.3 mmol/L (3.5-5.1)
[2016-06-12 06:57] LABS: CHOLESTEROL/HDL RATIO 2.5
[2016-06-12] MEDS: GUAIFENESIN 600 MG TABCR PO SCH ×2 (08:25→21:14)
[2016-06-12] MEDS: CALCIUM 600MG + VIT D 400 IU TAB PO SCH ×2 (08:25→16:44)
[2016-06-12] MEDS: METHYLPREDNISOLONE IV 40 MG in SYRINGE 0 ML IV SCH (08:25)
[2016-06-12] MEDS: CEROVITE ADV FORMULA TAB PO SCH (08:26)
[2016-06-12] MEDS: ESCITALOPRAM OXALATE 10 MG TAB PO SCH (08:26)
[2016-06-12] MEDS ORDERED: OPTIRAY 320 IV PRN (08:30)
[2016-06-12] MEDS: HEPARIN SOD 5000 UNIT/0.5 ML CARP SQ SCH ×2 (08:43→21:15)
[2016-06-12] MEDS: DOXYCYCLINE IV 100 MG in DEXTROSE 5% 100ML 100 ML IV SCH ×2 (08:44→21:22)
[2016-06-12] MEDS: FLUTICASONE/SALMETEROL 250/50 (ADVAIR) 14 PUFF/1 INHALER INH SCH ×2 (08:44→21:11)
--- NOTE | 2016-06-12 08:46 | ECHOCARDIOGRAM REPORT ---
*NOTICE TO RECEIVING REPUBLICAN AGENCY This information is strictly Confidential and protected under [place] law. [place] law prohibits you from making any further disclosure of this information unless further disclosure is expressly permitted by the written consent of the person to whom it pertains or is authorized by law. A general authorization for the release of medical or other information is not sufficient for this purpose. Hospital accepts no responsibility if the information is made available to any other person, INCLUDING THE PATIENT. Interpretation Summary * Name: TARAN GAN Study Date: 06/11/2016 04:39 PM BP: 110/62 mmHg * Patient Location: C.EDB HR: 98 * : 1935 (M/d/yyyy) Gender: Female Height: 60 in * Age: 80 yrs Ethnicity: CA Weight: 110 lb * Ordering Physician: Geovany Durham * Referring Physician: Self, Referred * Performed By: Celine Macias RCS * * Reason For Study: AMI / ELEVATED TROPONIN * BSA: 1.4 m2 * -- Conclusions -- * Normal LV chamber size and wall thickness. * Severely reduced LV systolic function, EF 15-20%. * Mild to moderate hypokinesis of the basal wall segments with severe hypokinesis of the mid and apical segments. * Grade I diastolic dysfunction. * No significant valvular pathology. Procedure Details * A complete two-dimensional transthoracic echocardiogram was performed (2D, M-mode, Doppler and color flow Doppler). Left Ventricle * The left ventricle is normal in size. * There is normal left ventricular wall thickness. * Ejection Fraction = 15-20%. * Left ventricular systolic function is severely reduced. * Mild to moderate hypokinesis of the basal wall segments with severe hypokinesis of the mid and apical segments. Right Ventricle * The right ventricular cavity size is normal (basal dimension <4.2 cm in right ventricular apical 4-chamber view). * The right ventricular systolic function is normal as assessed by tricuspid annular plane systolic excursion (TAPSE) (normal >1.5 cm). Atria * The left atrial size is normal. * Right atrial size is normal. * No ASD detected; PFO is not assessed. Mitral Valve * The mitral valve is normal in structure and function. Tricuspid Valve * The tricuspid valve is normal in structure and function. Aortic Valve * The aortic valve is not well visualized. * No hemodynamically significant valvular aortic stenosis. * There is no significant aortic regurgitation. Pulmonic Valve * The pulmonary valve is not well seen, but the Doppler examination is normal without significant regurgitation or stenosis. Great Vessels * The aortic root is normal size. Pericardium/Pleural * There is no pericardial effusion. Left Ventricular Diastolic Function * Grade I diastolic dysfunction, (abnormal relaxation pattern). MMode 2D Measurements and Calculations IVSd 1.1 cm IVSs 1.2 cm LVIDd 4.0 cm LVIDs 3.6 cm LVPWd 1.2 cm LVPWs 1.2 cm IVS/LVPW 0.92 FS 8.4 % EDV(Teich) 68.0 ml ESV(Teich) 55.2 ml EF(Teich) 18.9 % EDV(cubed) 61.7 ml ESV(cubed) 47.5 ml EF(cubed) 23.1 % % IVS thick 10.8 % % LVPW thick 2.3 % LV mass(C)d 156.1 grams LV mass(C)dI 107.8 grams/m\S\2 LV mass(C)s 150.5 grams LV mass(C)sI 104.0 grams/m\S\2 SV(Teich) 12.8 ml SI(Teich) 8.9 ml/m\S\2 SV(cubed) 14.2 ml SI(cubed) 9.8 ml/m\S\2 Ao root diam 3.6 cm Ao root area 10.1 cm\S\2 LA dimension 3.1 cm LA/Ao 0.86 LVOT diam 2.0 cm LVOT area 3.1 cm\S\2 LVAd ap4 20.0 cm\S\2 LVLd ap4 5.5 cm EDV(MOD-sp4) 58.6 ml EDV(sp4-el) 61.8 ml LVAs ap4 17.6 cm\S\2 LVLs ap4 5.3 cm ESV(MOD-sp4) 47.4 ml ESV(sp4-el) 49.5 ml EF(MOD-sp4) 19.1 % EF(sp4-el) 19.9 % LVAd ap2 22.6 cm\S\2 LVLd ap2 5.8 cm EDV(MOD-sp2) 70.6 ml EDV(sp2-el) 74.4 ml LVAs ap2 19.8 cm\S\2 LVLs ap2 5.6 cm ESV(MOD-sp2) 56.5 ml ESV(sp2-el) 59.3 ml EF(MOD-sp2) 19.9 % EF(sp2-el) 20.4 % LVLd %diff 5.8 % EDV(MOD-bp) 67.0 ml LVLs %diff 5.9 % ESV(MOD-bp) 53.9 ml EF(MOD-bp) 19.5 % SV(MOD-sp4) 11.2 ml SI(MOD-sp4) 7.7 ml/m\S\2 SV(MOD-sp2) 14.1 ml SI(MOD-sp2) 9.7 ml/m\S\2 SV(MOD-bp) 13.1 ml SI(MOD-bp) 9.0 ml/m\S\2 SV(sp4-el) 12.3 ml SI(sp4-el) 8.5 ml/m\S\2 SV(sp2-el) 15.2 ml SI(sp2-el) 10.5 ml/m\S\2 Doppler Measurements and Calculations MV E max barry 59.3 cm/sec MV A max barry 103.5 cm/sec MV E/A 0.57 MV P1/2t max barry 85.3 cm/sec MV P1/2t 36.6 msec MVA(P1/2t) 6.0 cm\S\2 MV dec slope 682.5 cm/sec\S\2 MV dec time 0.18 sec Ao V2 max 88.6 cm/sec Ao max PG 3.1 mmHg Ao max PG (full) 1.4 mmHg BRIAN(V,A) 2.3 cm\S\2 BRIAN(V,D) 2.3 cm\S\2 LV V1 max PG 1.8 mmHg LV V1 max 66.3 cm/sec
--- NOTE | 2016-06-12 10:18 | Cardiology Follow-Up ---
Subjective Subjective Date of Service: Jun 12, 2016. Pt evaluation today including: conversation w/ patient, physical exam, chart review, lab review, review of studies, review of inpatient medication list Additional Details: Pt seen and examined, states that she's still a little dyspnic. Denies cp, palpitations, lightheadedness or dizziness. Tele reviewed: sinus rhythm/tach, rates in 90's-100's. Review of Systems Respiratory: + dyspnea on exertion, No cough, No dyspnea at rest, No hemoptysis , No problem reported, No see HPI, No shortness of breath, No sputum, No wheezing Cardiac: No PND, No chest pain, No claudication, No edema, No orthopnea, No palpitations, No problem reported, No see HPI Endo: + fatigue Objective Vital Signs Last Vital Signs Documentation Date Time Temp Pulse Resp B/P Pulse Ox O2 Delivery O2 Flow Rate FiO2 06/12/16 08:26 36.9 72 22 119/69 98 4.0 06/12/16 08:00 Nasal Cannula Physical Exam: General Appearance: WD/WN, no apparent distress, + pertinent finding ( conversational dyspnea) Eyes: bilateral eyes EOMI, bilateral eyes PERRL, bilateral eyes normal inspection ENT: normal ENT inspection, hearing grossly normal, pharynx normal Neck: supple, no adenopathy, thyroid normal, no JVD, no carotid bruits, trachea midline Respiratory/Chest: chest non-tender, lungs clear, normal breath sounds, no respiratory distress, no accessory muscle use Cardiovascular: regular rate, rhythm, no edema, no JVD, no murmur, + tachycardia, + gallop/S4 Abdomen: normal bowel sounds, non tender, soft, no organomegaly Extremities: normal inspection, no pedal edema, no calf tenderness Neurologic/Psychiatric: 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 newly discovered cardiomyopathy cad ruled out etiology includes possible takotsubo vs. viral will uptitrate beta tammi ssri has been adjusted will need follow up 2. sob nonischemic not volume overloaded with persistent tachycardia, agree to r/o PE renal function returned to baseline after cath, ok with cta
--- NOTE | 2016-06-12 10:26 | Clinical Documentation Query ---
PAM Bill : CLINICAL DOCUMENTATION QUERY Patient is an 80 year old female presenting with shortness of breath. In the ED, patient was found to have a serum troponin of 3.2 ng/ml with elevated CK and CK-MB fractions and EKG demonstrated inferior and anterolateral T wave inversions and ST depression. Subsequently, patient was taken to quality lab technician were mild CAD was identified but significant LV systolic dysfunction was noted. Post cath TTE demonstrated an LVEF of 15-20% with "mild to moderate hypokinesis of the basal wall segments with severe hypokinesis of the mid and apical segments". She was then admitted to telemetry and monitored with serial labs, EKG's, and medical management. In your clinical opinion is this patient being managed for: ( ) Type II NSTEMI ( ) Other explanation of clinical findings (Please Explain) ( ) Unable to determine (Please Define) ( ) Need to Discuss ( x ) Not Agree : Takosubo Vs Viral Cardiomyopathy The medical record reflects the following clinical findings, treatment, and risk factors. Clinical Indicators: As above Treatment: Heart catheterization then admitted to telemetry and monitored with serial labs, EKG's, and medical management. Risk Factors: Age Please clarify and document your clinical opinion in the progress notes and discharge summary. Terms such as "probable", "suspected", "likely", "questionable", "possible", or "still to be ruled out" are acceptable. IF IN AGREEMENT, YOU MUST DOCUMENT ABOVE DIAGNOSTIC STATEMENT IN DAILY PROGRESS NOTES AND DISCHARGE SUMMARY. This document is not part of the patient's record. Thank You, Marbin Boss, DAVID [phone]
--- NOTE | 2016-06-12 10:43 | DIAGNOSTIC IMAGING REPORT ---
CHEST CTA for PULMONARY ARTERIES CT DOSE: 292.21 mGycm HISTORY: Atypical chest pain. TECHNIQUE: Multiaxial CT images of the chest were performed following the intravenous administration of contrast to evaluate the pulmonary arteries. Maximal intensity projection images were also obtained. COMPARISON STUDY: Chest 06/11/2016. FINDINGS: There is a normal caliber thoracic aorta with no evidence for dissection. There is no evidence for pulmonary embolus. No pleural effusions. No pneumothorax. Stable 9 mm hypodense lesion within the left hepatic lobe. This favors a cyst. Normal visualized spleen. Small fat-containing right-sided Bochdalek hernia. No mediastinal or hilar lymphadenopathy. Trace mucoid material within the trachea. Mild bronchial wall thickening. Moderate emphysema. The lungs are essentially clear. IMPRESSION: 1. No evidence for pulmonary embolus. 2. Moderate emphysema and mild bronchial wall thickening. Electronically signed by: Andrew Hawkins M.D. 06/12/2016 10:41 AM
--- NOTE | 2016-06-12 17:17 | Progress Note ---
Internal Med Progress Note Date of Service: Jun 12, 2016. (Natalya Shen .RAKESH) Provider Documentation: SUBJECTIVE: Patient seen with Dr. Beltrán. Patient reports shortness of breath at rest and with exertion remains the same. Reports a cough productive for yellow sputum. No fever or chills. Denies chest pain, lightheadedness, or dizziness. No abdominal pain or nausea. OBJECTIVE: Vital Signs-as noted below Exam: please refer to Dr. Beltrán's addendum for physical exam Lab data as noted below. ASSESSMENT & PLAN: SHORTNESS OF BREATH, ELEVATED TROPONIN, EKG CHANGES TAKOTSUBO VS VIRAL CARDIOMYOPATHY - patient presenting with cold like symptoms for 2 weeks and development of acute shortness of breath - in the ER found to have trop 3.2 and EKG with T-wave inversions inferiorly and laterally; patient was evaluated by Dr. Durham in the ED and echo was obtained that "showed severely reduced LV systolic function with akinesis of the anterior septal and apical ceja with otherwise severe global hypokinesis" ( per Dr. Durham's consultation); patient was taken emergently to the laboratory sampler and cardiac cath showed minimal CAD and it was felt that patient had Takotsubo' s syndrome vs viral cardiomyopathy - echo - * Normal LV chamber size and wall thickness. * Severely reduced LV systolic function, EF 15-20%. * Mild to moderate hypokinesis of the basal wall segments with severe hypokinesis of the mid and apical segments. * Grade I diastolic dysfunction. * No significant valvular pathology. - beta tammi therapy has been started - PE ruled out COPD EXACERBATION - IV steroids, nebs - on doxy, sputum growing Moraxella Catarrahalis - no infiltrate on CXR or CT chest SARAH, resolved - likely prerenal due to acute illness - resolved with IVF HYPOTHYROIDISM - continue levothyroxine DEPRESSION, ANXIETY - continue escitalopram DVT PROPHYLAXIS - SQ Heparin DISPO - pending - PT/OT consults placed (Natalya Shen CRNP) ASSESSMENT & PLAN: Patient is interviewed and examined along with Natalya CAMERON Patient states SOB and cough about the same as yesterday. Denies any chest pain. Physical exam: Vitals signs as above Moderately built and nourished. No acute distress CVS:S1, S2, Tachycardia Resp: Decreased breath sounds bilaterally, no added sounds Abd: Soft, non tender, BS present Neuro: No focal deficits Takotsubo Vs Viral Cardiomyopathy Elevated Troponin/EKG changes: S/P Cath: non occlusive coronary artery disease Cardiology on board Continue beta blockers Elevated d-dimer, CT : negative for PE Bedside ECHO:severely reduced LV systolic function with akinesis of the anterior septal and apical ceja with otherwise severe global hypokinesis Acute on Chronic COPD exacerbation: Continue Doxycycline (Given QTC prolongation) Continue bronchodilators and glucocorticoids Moraxella Catarrhalis on sputum Oxygen support FU Blood and Sputum cultures SARAH on CKD III: Resolved DC IV fluids Monitor renal function Ulcerative colitis: Stable Hypothyroidism: Continue Levothyroxine Anxiety/Depression: Stable. Continue home medications DVT Px: Heparin SQ Code Status; Full code Vital Signs: Date Time Temp Pulse Resp B/P Pulse Ox O2 Delivery O2 Flow Rate FiO2 06/12/16 17:57 98 123/72 06/12/16 16:00 Room Air 06/12/16 15:12 36.6 74 18 106/51 100 Nasal Cannula 2.0 06/12/16 14:00 93 Room Air 06/12/16 12:00 Nasal Cannula 2.0 06/12/16 11:54 36.8 105 18 141/69 96 06/12/16 08:26 36.9 72 22 119/69 98 4.0 06/12/16 08:00 Nasal Cannula 2.0 06/12/16 05:59 84 105/66 06/12/16 04:02 Room Air 4.0 06/12/16 04:02 36.6 87 16 92/50 99 2.0 06/12/16 00:02 Room Air 2.0 06/11/16 23:46 36.7 90 16 94/51 98 Room Air 06/11/16 21:00 92 109/84 96 Nasal Cannula 4.0 06/11/16 20:02 Nasal Cannula 2.0 06/11/16 20:02 93 19 111/70 97 Nasal Cannula 2.0 06/11/16 20:02 82 06/11/16 19:00 36.7 91 20 89/65 98 Nasal Cannula 2.0 (Valentin Beltrán MD) Lab Results: Results Past 24 Hours Test 06/11/16 19:25 06/12/16 00:30 06/12/16 01:00 06/12/16 05:22 Range/Units D-Dimer 2220 0-500 ug/L FEU Creatine Kinase MB Ratio 0-3.0 Creatine Kinase MB 12.6 0.5-3.6 ng/ml Troponin I 1.980 0-0.045 ng/ml White Blood Count 11.93 4.8-10.8 K/uL Red Blood Count 3.81 4.2-5.4 M/uL Hemoglobin 11.9 12.0-16.0 g/dL Hematocrit 35.9 37-47 % Mean Corpuscular Volume 94.2 80-100 fL Mean Corpuscular Hemoglobin 31.2 25-34 pg Mean Corpuscular Hemoglobin Concent 33.1 32-36 g/dl RDW Standard Deviation 45.3 36.4-46.3 fL RDW Coefficient of Variation 13.1 11.5-14.5 % Platelet Count 260 130-400 K/uL Mean Platelet Volume 10.7 7.4-10.4 fL Activated Partial Thromboplast Time 26.2 21.0-31.0 SECONDS Partial Thromboplastin Ratio 1.0 Sodium Level 144 136-145 mmol/L Potassium Level 4.3 3.5-5.1 mmol/L Chloride Level 109 98-107 mmol/L Carbon Dioxide Level 27 21-32 mmol/L Anion Gap 8.0 3-11 mmol/L Blood Urea Nitrogen 19 7-18 mg/dl Creatinine 0.86 0.60-1.20 mg/dl Est Creatinine Clear Calc Drug Dose 37.5 ml/min Estimated GFR () 73.9 Estimated GFR (Non- 63.8 BUN/Creatinine Ratio 22.4 10-20 Random Glucose 139 70-99 mg/dl Calcium Level 8.4 8.5-10.1 mg/dl Triglycerides Level 126 0-150 mg/dl Cholesterol Level 116 0-200 mg/dl HDL Cholesterol 47 mg/dl LDL Cholesterol, Calculated 44 mg/dl VLDL Cholesterol, Calculated 25 mg/dl Cholesterol/HDL Ratio 2.5 Microbiology Results 06/11/16 Blood Culture, Received Pending 06/11/16 Blood Culture, Received Pending 06/11/16 Gram Stain - Final, Resulted 06/11/16 Sputum Culture - Preliminary, Resulted Moraxella Catarrahalis (B.cat) (Valentin Beltrán MD)
[2016-06-12] MEDS: RANITIDINE HCL 150 MG TAB PO SCH (21:13)
[2016-06-13] VITALS (7 sets, daily range): BP systolic 104–135; BP diastolic 53–74; PULSE 70–91; TEMP 36.5–36.7; O2SAT 91–99
[2016-06-13] MEDS: LEVOTHYROXINE 75 MCG TAB PO SCH (05:58)
[2016-06-13] MEDS: METOPROLOL TARTRATE 25 MG TAB PO SCH ×4 (05:58→23:55)
[2016-06-13 06:13] LABS: MEAN CELL VOLUME 94.9 fL (80-100); MEAN CORPUSCULAR HGB CONC 32.7 g/dl (32-36); MEAN PLATELET VOLUME 10.9 fL (7.4-10.4); PLATELET COUNT 291 K/uL (130-400); WHITE BLOOD COUNT 14.03 K/uL (4.8-10.8)
[2016-06-13 06:42] LABS: BUN/CREATININE RATIO 22.4 (10-20); CALCIUM 8.9 mg/dl (8.5-10.1); CREATININE 0.88 mg/dl (0.60-1.20); POTASSIUM 3.9 mmol/L (3.5-5.1)
[2016-06-13] MEDS: DOXYCYCLINE IV 100 MG in DEXTROSE 5% 100ML 100 ML IV SCH ×2 (08:07→20:27)
[2016-06-13] MEDS: METHYLPREDNISOLONE IV 40 MG in SYRINGE 0 ML IV SCH (08:07)
[2016-06-13] MEDS: FLUTICASONE/SALMETEROL 250/50 (ADVAIR) 14 PUFF/1 INHALER INH SCH ×2 (08:07→20:27)
[2016-06-13] MEDS: CALCIUM 600MG + VIT D 400 IU TAB PO SCH ×2 (08:09→17:27)
[2016-06-13] MEDS: ESCITALOPRAM OXALATE 10 MG TAB PO SCH (08:09)
[2016-06-13] MEDS: GUAIFENESIN 600 MG TABCR PO SCH ×2 (08:09→20:27)
[2016-06-13] MEDS: CEROVITE ADV FORMULA TAB PO SCH (08:10)
[2016-06-13] MEDS: HEPARIN SOD 5000 UNIT/0.5 ML CARP SQ SCH ×2 (08:13→20:33)
--- NOTE | 2016-06-13 10:20 | Cardiology Follow-Up ---
Subjective Subjective Date of Service: Jun 13, 2016. Pt evaluation today including: conversation w/ patient, physical exam, chart review, lab review, review of studies, review of inpatient medication list Additional Details: Pt seen and examined, states that breathing has slightly improved but not yet to baseline. Denies cp, sob, palpitations, lightheadedness or dizziness. Tele reviewed: sinus rhythm without arrhythmia Review of Systems Respiratory: + dyspnea on exertion, No cough, No dyspnea at rest, No hemoptysis , No problem reported, No see HPI, No shortness of breath, No sputum, No wheezing Cardiac: No PND, No chest pain, No claudication, No edema, No orthopnea, No palpitations, No problem reported, No see HPI Endo: + fatigue Objective Vital Signs Last Vital Signs Documentation Date Time Temp Pulse Resp B/P Pulse Ox O2 Delivery O2 Flow Rate FiO2 06/13/16 08:18 36.7 75 16 104/72 99 Nasal Cannula 2.0 Physical Exam: General Appearance: WD/WN, no apparent distress, + pertinent finding ( conversational dyspnea) Eyes: bilateral eyes EOMI, bilateral eyes PERRL, bilateral eyes normal inspection ENT: normal ENT inspection, hearing grossly normal, pharynx normal Neck: supple, no adenopathy, thyroid normal, no JVD, no carotid bruits, trachea midline Respiratory/Chest: chest non-tender, lungs clear, normal breath sounds, no respiratory distress, no accessory muscle use Cardiovascular: regular rate, rhythm, no edema, no JVD, no murmur, + tachycardia, + gallop/S4 Abdomen: normal bowel sounds, non tender, soft, no organomegaly Extremities: normal inspection, no pedal edema, no calf tenderness 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 newly discovered cardiomyopathy cad ruled out etiology includes possible takotsubo vs. viral tolerating beta tammi well would change to metoprolol succinate 50mg bid in AM cont SSRI will need repeat echo and cardiac follow up in 1 month defer initiation of lexy given relative hypotension 2. sob nonischemic not volume overloaded agree with treating for copd exac, moraxella positive ok to d/c tele from cardiac standpoint. Dr. Zahra in weekend coverage, call with questions or concerns.
[2016-06-13] MEDS ORDERED: NURSING VERBAL MED ORDER ONE (13:00)
--- NOTE | 2016-06-13 15:31 | Progress Note ---
Internal Med Progress Note Date of Service: Jun 13, 2016. Provider Documentation: Patient is interviewed and examined at bedside. She states her SOB is improved. Denies any chest pain, palpitations. 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, no motor/sensory deficits, alert, normal mood/affect, oriented x 3 Skin: normal color, warm/dry, no rash Lymphatic: no adenopathy ASSESSMENT & PLAN: Takotsubo Vs Viral Cardiomyopathy Elevated Troponin/with EKG changes S/P Cath: CAD ruled out Cardiology on board Continue beta blockers per cardiology Elevated d-dimer, CT : negative for PE Bedside ECHO:severely reduced LV systolic function with akinesis of the anterior septal and apical ceja with otherwise severe global hypokinesis Exercise and Nocturnal Pulse Ox Titrate off oxygen as able Planned to switch to Metoprolol succinate 50mg bid tomorrow Needs repeat ECHO in 1 month and FU with cardiology Acute on Chronic COPD exacerbation: Continue Doxycycline (Given QTC prolongation) Continue bronchodilators and glucocorticoids Moraxella Catarrhalis on sputum Switch to PO prednisone in AM Oxygen support PRN Blood cultures: No growth to date Leukocytosis secondary to steroids SARAH on CKD III: Resolved IV fluids discontinued Monitor renal function Ulcerative colitis: Stable Hypothyroidism: Continue Levothyroxine Anxiety/Depression: Stable. Continue home medications DVT Px: Heparin SQ Code Status; Full code Disposition: Plan to discharge tomorrow if stable and cleared by cardiology Vital Signs: Date Time Temp Pulse Resp B/P Pulse Ox O2 Delivery O2 Flow Rate FiO2 06/13/16 12:04 91 18 135/74 92 Room Air 06/13/16 08:18 36.7 75 16 104/72 99 Nasal Cannula 2.0 06/13/16 08:00 Room Air 2.0 Nasal Cannula 06/13/16 05:57 82 104/68 06/13/16 03:31 36.5 75 18 109/53 99 Nasal Cannula 2.0 06/13/16 03:30 Room Air 2.0 Nasal Cannula 06/12/16 23:30 Room Air 06/12/16 22:53 36.7 83 18 103/60 92 Room Air 06/12/16 19:30 Room Air 06/12/16 19:01 36.6 83 18 111/59 91 Room Air 06/12/16 17:57 98 123/72 06/12/16 16:00 Room Air Lab Results: Results Past 24 Hours Test 06/13/16 05:06 Range/Units White Blood Count 14.03 4.8-10.8 K/uL Red Blood Count 3.90 4.2-5.4 M/uL Hemoglobin 12.1 12.0-16.0 g/dL Hematocrit 37.0 37-47 % Mean Corpuscular Volume 94.9 80-100 fL Mean Corpuscular Hemoglobin 31.0 25-34 pg Mean Corpuscular Hemoglobin Concent 32.7 32-36 g/dl RDW Standard Deviation 45.6 36.4-46.3 fL RDW Coefficient of Variation 13.2 11.5-14.5 % Platelet Count 291 130-400 K/uL Mean Platelet Volume 10.9 7.4-10.4 fL Activated Partial Thromboplast Time 26.2 21.0-31.0 SECONDS Partial Thromboplastin Ratio 1.0 Sodium Level 144 136-145 mmol/L Potassium Level 3.9 3.5-5.1 mmol/L Chloride Level 106 98-107 mmol/L Carbon Dioxide Level 31 21-32 mmol/L Anion Gap 7.0 3-11 mmol/L Blood Urea Nitrogen 20 7-18 mg/dl Creatinine 0.88 0.60-1.20 mg/dl Est Creatinine Clear Calc Drug Dose 36.6 ml/min Estimated GFR () 71.9 Estimated GFR (Non- 62.1 BUN/Creatinine Ratio 22.4 10-20 Random Glucose 78 70-99 mg/dl Calcium Level 8.9 8.5-10.1 mg/dl
[2016-06-13] MEDS: RANITIDINE HCL 150 MG TAB PO SCH (20:29)
[2016-06-14] VITALS (7 sets, daily range): BP systolic 91–116; BP diastolic 49–64; PULSE 74–88; TEMP 36.8–36.9; O2SAT 91–93
[2016-06-14] MEDS: LEVOTHYROXINE 75 MCG TAB PO SCH (06:18)
[2016-06-14 06:38] LABS: BUN/CREATININE RATIO 24.6 (10-20); CALCIUM 8.9 mg/dl (8.5-10.1); CREATININE 0.89 mg/dl (0.60-1.20); POTASSIUM 3.6 mmol/L (3.5-5.1)
[2016-06-14] MEDS: GUAIFENESIN 600 MG TABCR PO SCH (08:36)
[2016-06-14] MEDS: CEROVITE ADV FORMULA TAB PO SCH (08:36)
[2016-06-14] MEDS: ESCITALOPRAM OXALATE 10 MG TAB PO SCH (08:38)
[2016-06-14] MEDS: FLUTICASONE/SALMETEROL 250/50 (ADVAIR) 14 PUFF/1 INHALER INH SCH (08:38)
[2016-06-14] MEDS: DOXYCYCLINE IV 100 MG in DEXTROSE 5% 100ML 100 ML IV SCH (08:38)
[2016-06-14] MEDS: CALCIUM 600MG + VIT D 400 IU TAB PO SCH (08:38)
[2016-06-14] MEDS: HEPARIN SOD 5000 UNIT/0.5 ML CARP SQ SCH (08:42)
[2016-06-14] MEDS ORDERED: METOPROLOL SUCC 50MG EXT REL TAB PO SCH (09:00)
--- NOTE | 2016-06-14 13:17 | Progress Note ---
Internal Med Progress Note Date of Service: Jun 14, 2016. Provider Documentation: Patient is interviewed and examined at bedside. He reports having SOB on exertion but otherwise feels well. Denies any chest pain, palpitations. 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, no motor/sensory deficits, alert, normal mood/affect, oriented x 3 Skin: normal color, warm/dry, no rash Lymphatic: no adenopathy ASSESSMENT & PLAN: Takotsubo Vs Viral Cardiomyopathy Elevated Troponin/with EKG changes S/P Cath: CAD ruled out Cardiology on board Changed to Metoprolol Succinate today Elevated d-dimer, CT : negative for PE Bedside ECHO:severely reduced LV systolic function with akinesis of the anterior septal and apical ceja with otherwise severe global hypokinesis Needs Nocturnal oxygen 2L at bedtime Saturating well on RA Needs repeat ECHO in 1 month and FU with cardiology Acute on Chronic COPD exacerbation: Continue Doxycycline (Given QTC prolongation) Continue bronchodilators and glucocorticoids Moraxella Catarrhalis on sputum Continue PO prednisone Oxygen support PRN Blood cultures: No growth to date Leukocytosis secondary to steroids- stable SARAH on CKD III: Resolved S/P IV fluids Monitor renal function Ulcerative colitis: Stable Hypothyroidism: Continue Levothyroxine Anxiety/Depression: Stable. Continue home medications DVT Px: Heparin SQ Code Status; Full code Disposition: Plan to discharge home today Vital Signs: Date Time Temp Pulse Resp B/P Pulse Ox O2 Delivery O2 Flow Rate FiO2 06/14/16 12:50 36.8 77 24 105/59 92 Room Air 06/14/16 12:46 36.9 74 16 92/51 93 Room Air 06/14/16 12:00 Room Air 06/14/16 08:35 36.8 76 16 91/49 92 Room Air 06/14/16 08:31 88 112/62 06/14/16 08:00 Room Air 06/14/16 04:00 36.8 75 19 111/58 91 Room Air 06/14/16 03:30 Room Air 06/14/16 00:00 36.8 81 19 116/64 91 Room Air 06/13/16 23:30 Room Air 06/13/16 19:30 Room Air 06/13/16 19:23 36.7 70 22 120/68 97 Room Air 06/13/16 17:30 85 106/58 06/13/16 16:00 Room Air 2.0 Nasal Cannula 06/13/16 15:49 36.7 78 16 111/64 91 Room Air Lab Results: Results Past 24 Hours Test 06/14/16 05:06 Range/Units Activated Partial Thromboplast Time 24.8 21.0-31.0 SECONDS Partial Thromboplastin Ratio 1.0 Sodium Level 144 136-145 mmol/L Potassium Level 3.6 3.5-5.1 mmol/L Chloride Level 103 98-107 mmol/L Carbon Dioxide Level 33 21-32 mmol/L Anion Gap 8.0 3-11 mmol/L Blood Urea Nitrogen 22 7-18 mg/dl Creatinine 0.89 0.60-1.20 mg/dl Est Creatinine Clear Calc Drug Dose 35.0 ml/min Estimated GFR () 70.9 Estimated GFR (Non- 61.2 BUN/Creatinine Ratio 24.6 10-20 Random Glucose 91 70-99 mg/dl Calcium Level 8.9 8.5-10.1 mg/dl
[2016-06-14] MEDS ORDERED: VBRT100 PO (13:25)
[2016-06-14] MEDS ORDERED: TPRSR50 PO (13:25)
[2016-06-14] MEDS ORDERED: PRD20 PO (13:29)
--- NOTE | 2016-06-14 13:48 | Discharge Instructions ---
Discharge Instructions Admission Reason for Admission: Non [facility] Discharge Discharge Diagnosis / Problem: Takotsubo Vs Viral Cardiomyopathy Discharge Goals Goal(s): Decrease discomfort, Improve function Activity Recommendations Activity Limitations: resume your previous activity . 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 Who to Call and When: Medical Emergencies: If at any time you feel your situation is an emergency, please call 911 immediately. . Non-Emergent Contact Non-Emergency issues call your: Primary Care Provider, [facility] Call Non-Emergent contact if: you have any medication questions . . "Provider Documentation" section prepared by Valentin Beltrán. VTE Core Measure Inpt VTE Proph given/why not?: Unfractionated heparin SQ
--- NOTE | 2016-06-14 18:12 | Discharge Summary ---
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 Right dominant circulation. Normal large caliber LM giving rise to medium caliber LAD and L Cx. Very proximal LAD gave rise to a very small caliber first diagonal. Proximal LAD after a prominent septal had a 20% stenosis. Mid LAD gave rise to a long small - medium caliber second diagonal. Distal LAD wrapped around apex and supplied inferoapical left ventricle. Proximal L Cx with 10% stenosis. Mid L Cx gave rise to a long small - medium caliber marginal. Mid Lc then gave rise to very small caliber OM2 and OM3. Distal L Cx gave rise to a very small caliber OM4. RCA a medium - large caliber vessel. Proximal 10% stenosis, sequential mid 20% stenoses. Distal RCA gave rise to small caliber PDA and PL. Aortography performed to exclude an aortic dissection because of hang up of contrast dye in aortic cusp on coronary angiography. No dissection noted on aortic angiography. No aortic regurgitation. LV angiography in 30 degree CRAIG projection with diaphragmatic and anterolateral hypokinesis. Anterobasal,apical,and posterobasal segments contracted normally. Calculated LVEF 42%. No MR. Plan: No indication for revascularization. Possible stress induced cardiomyopathy ( Takotsubo's syndrome). Continued cardiology follow up and cardiac management by Dr. Durham. CXR: Emphysema with chronic interstitial changes. Chronic blunting and elevation of the lateral margin of the left hemidiaphragm. No evidence of acute parenchymal consolidation CTA: 1. No evidence for pulmonary embolus. 2. Moderate emphysema and mild bronchial wall thickening. Consultations: Cardiology Medication Reconciliation New Medications: Doxycycline Hyclate (Doxycycline Hyclate) 100 Mg Tab 100 MG PO BID for 5 Days Prednisone (Prednisone) 20 Mg Tab 10 MG PO DAILY, #18 Start taking one tablet three times a day for 3 days then one tablet two times a day for 3 days then one tablet daily for 3 days and stop Metoprolol Succinate (Metoprolol Succinate ER) 50 Mg Tabcr 50 MG PO BID for 30 Days, #60 1 Refill Continued Medications: Acetaminophen (Tylenol) 500 Mg Tab 1000 MG PO Q6H PRN for Pain, TAB Albuterol (Ventolin) Inh 2 PUFFS INH Q4H PRN for Wheezing, INHALER Calcium Carbonate-Vitamin D W/ (Caltrate 600 Plus) 1 Tab Tab 1 TAB PO BID, TAB Dicyclomine Hcl (Dicyclomine Hcl) 10 Mg Cap 10 MG PO TID PRN for ABDOMINAL PAIN, #90 Docusate Sodium (Stool Softener) 100 Mg Cap 100 MG PO HS PRN for Constipation Escitalopram Oxalate (Lexapro) 10 Mg Tab 20 MG PO DAILY, TAB Fluticasone Prop/Salmeterol (Advair Diskus 250-50 Mcg/Dose) 14 Puff/1 Inhaler Aerp 1 PUFF INH BID Levothyroxine Sodium (Synthroid) 75 Mcg Tab 75 MCG PO DAILY, TAB Multiple Vitamins W/ Minerals (Centrum Silver Ultra Wome) 1 Tab Tab 1 TAB PO DAILY Ranitidine Hcl (Zantac) 300 Mg Tab 300 MG PO HS, TAB Admission Information HPI (per Admitting provider): 80 year old female who presents to the ER with shortness of breath. Patient reports she has had cold like symptoms for the past couple of weeks. Last night she suddenly developed shortness of breath. She reports associated diaphoresis. No chest pain, pressure, or palpitations. She denies lightheadedness, dizziness , diaphoresis, or syncope. No abdominal pain, nausea, or vomiting. No fever or chills. She denies any urinary symptoms. In the ER, patient was found to have trop 3.2 and EKG shoed new T-wave inversions laterally and inferiorly. Patient was evaluated by Dr. Durham from cardiology and was taken to the medical lab technician emergently. Physical Exam (per Admitting): General Appearance: no apparent distress Head: normocephalic Eyes: normal inspection ENT: hearing grossly normal Neck: supple, no JVD Respiratory/Chest: chest non-tender, lungs clear, no respiratory distress, + decreased breath sounds, + pertinent finding (Mild accessory muscle use) Cardiovascular: regular rate, rhythm, no edema, no JVD, no murmur, normal peripheral pulses, + tachycardia Abdomen/GI: normal bowel sounds, non tender, soft, no organomegaly Back: normal inspection, no CVA tenderness Extremities/Musculoskelatal: normal inspection, no calf tenderness, normal capillary refill, no pedal edema, normal range of motion, non-tender, pelvis stable Neurologic/Psych: spinneret cleaner II-XII nml as tested, no motor/sensory deficits, alert , normal mood/affect, normal reflexes, oriented x 3 Skin: normal color, warm/dry Lymphatic: no adenopathy Hospital Course Patient is an 80 yr old female with PMH of COPD, Ulcerative colitis, CKD III presents with history of flu like symptoms, SOB, cough with yellowish sputum production, diaphoresis since about 1 week duration which has has progressively worsening since last 2 days. Denies any history of chest pain, palpitations, wheezes, abd pain, change in bowel/bladder habits, fever, chills. In the ER, patient was found to have elevated trop 3.2 and EKG showed new T-wave inversions inferior and anterolateral leads. Per Cardiology recommendation, patient cardiac catheterization which showed non occlusive coronary artery disease. Patient was diagnosed to have cardiomyopathy likely secondary to Takotsubo Vs Viral in etiology. Patient was treated with metoprolol and advised to get repeat ECHO in 1 month. Also patient was treated for acute COPD exacerbation and she grew Moraxella Catarrhalis in sputum. Patient improved clinically with above management and was discharged home in stable condition. She was advised to complete the antibiotic and steroid course as prescribed and follow up with her PCP and director of casework services as outpatient. Takotsubo Vs Viral Cardiomyopathy Elevated Troponin/with EKG changes S/P Cath: CAD ruled out Cardiology on board Changed to Metoprolol Succinate today Elevated d-dimer, CT : negative for PE Bedside ECHO:severely reduced LV systolic function with akinesis of the anterior septal and apical ceja with otherwise severe global hypokinesis Needs Nocturnal oxygen 2L at bedtime Saturating well on RA Needs repeat ECHO in 1 month and FU with cardiology Acute on Chronic COPD exacerbation: Continue Doxycycline (Given QTC prolongation) Continue bronchodilators and glucocorticoids Moraxella Catarrhalis on sputum Continue PO prednisone Oxygen support PRN Blood cultures: No growth to date Leukocytosis secondary to steroids- stable SARAH on CKD III: Resolved S/P IV fluids Monitor renal function Ulcerative colitis: Stable Hypothyroidism: Continue Levothyroxine Anxiety/Depression: Stable. Continue home medications DVT Px: Heparin SQ Code Status; Full code Disposition: Plan to discharge home today Total time spent on discharge = This includes examination of the patient, discharge planning, medication reconciliation, and communication with other providers. Discharge Instructions Discharge Instructions Admission Reason for Admission: Non St Elevation Mi Discharge Discharge Diagnosis / Problem: Takotsubo Vs Viral Cardiomyopathy Discharge Goals Goal(s): Decrease discomfort, Improve function Activity Recommendations Activity Limitations: resume your previous activity . Instructions / Follow-Up Instructions / Follow-Up Follow up with on 06/19/16 at 1:10pm Follow up with ([facility]) in [place] in 1 month (Please call for appointment) Please get repeat ECHO done in 1 month and follow up with your director of casework services Complete the antibiotic and prednisone course as prescribed Current Hospital Diet Patient's current hospital diet: AHA Diet (Heart Healthy) Discharge Diet Recommended Diet: AHA Diet (Heart Healthy) Pending Studies Studies pending at discharge: no Laboratory Results Lipid Panel Test 06/12/16 05:22 Range/Units Triglycerides Level 126 0-150 mg/dl Cholesterol Level 116 0-200 mg/dl HDL Cholesterol 47 mg/dl Cholesterol/HDL Ratio 2.5 LDL Cholesterol, Calculated 44 mg/dl Medical Emergencies . Who to Call and When: Medical Emergencies: If at any time you feel your situation is an emergency, please call 911 immediately. . Non-Emergent Contact Non-Emergency issues call your: Primary Care Provider, [facility] Call Non-Emergent contact if: you have any medication questions . . "Provider Documentation" section prepared by Valentin Beltrán. VTE Core Measure Inpt VTE Proph given/why not?: Unfractionated heparin SQ
== END 2016-06-14 16:15 | disposition home health service (06) | DRG 287 ==
LOC: EDBD 12:51 → C.EDB 12:55 → C.2E 16:22
PROVIDERS: ADMIT Internal Medicine; ATTEND Internal Medicine
PROC: B2151ZZ Fluoroscopy of Left Heart using Low Osmolar Contrast (ICD-10-PCS; principal; 2016-06-11 16:24)
PROC: 4A023N7 Measurement of Cardiac Sampling and Pressure, Left Heart, Percutaneous Approach (ICD-10-PCS; principal; 2016-06-11 16:24)
DX: I42.9 Cardiomyopathy, unspecified (principal); I51.81 Takotsubo syndrome; J44.1 Chronic obstructive pulmonary disease with (acute) exacerbation; N17.9 Acute kidney failure, unspecified; K51.90 Ulcerative colitis, unspecified, without complications; I25.10 Atherosclerotic heart disease of native coronary artery without angina pectoris; E03.9 Hypothyroidism, unspecified; E78.5 Hyperlipidemia, unspecified; K21.9 Gastro-esophageal reflux disease without esophagitis; N18.3 Chronic kidney disease, stage 3 (moderate); F32.9 Major depressive disorder, single episode, unspecified; F41.9 Anxiety disorder, unspecified; Z87.891 Personal history of nicotine dependence